=== PATIENT | male | born 1950 | race African-American/Black ===

== ENCOUNTER → 2018-11-27 | Day surgery (SDC) | payer MEDICARE ==
[2018-11-24 12:13] LABS: BASOPHILS % 0.3 % (0.0-1.0); EOSINOPHILS # (AUTO) 0.1 (0.0-0.4); EOSINOPHILS % 2.1 % (0.0-6.0); HEMATOCRIT 43.3 % (38.2-49.6); HEMOGLOBIN 14.5 g/dL (14.0-18.0); LYMPHOCYTES # (AUTO) 1.9 (1.0-3.2); LYMPHOCYTES % 50.8 % (18.0-39.1); MEAN CORPUSCULAR HEMOGLOBIN 31.2 pg (28-32); MEAN CORPUSCULAR HGB CONC 33.5 g/dL (31-35); MEAN CORPUSCULAR VOLUME 93.1 fL (81-99); MONOCYTES # (AUTO) 0.4 (0.2-0.8); MONOCYTES % 10.1 % (4.4-11.3); NEUTROPHILS # (AUTO) 1.4 (2.1-6.9); NEUTROPHILS % 36.4 % (38.7-80.0); PLATELET COUNT 180 x10e3/uL (140-360); RED BLOOD COUNT 4.65 x10e6/uL (4.3-5.7); RED CELL DISTRIBUTION WIDTH 13.1 % (11.7-14.4)
[2018-11-24 12:31] LABS: INR 1.01; PROTHROMBIN TIME 13.8 seconds (11.9-14.5)
[2018-11-24 12:33] LABS: ALANINE AMINOTRANSFERASE 22 IU/L (0-55); ALBUMIN 4.3 g/dL (3.5-5.0); ALBUMIN/GLOBULIN RATIO 1.3 (0.8-2.0); ALKALINE PHOSPHATASE 42 IU/L (40-150); BLOOD UREA NITROGEN 18 mg/dL (7-26); BUN/CREATININE RATIO 17 (6-25); CALCIUM 10.1 mg/dL (8.4-10.2); CARBON DIOXIDE 30 mmol/L (22-29); CHLORIDE 103 mmol/L (98-107); CREATININE, SERUM 1.09 mg/dL (0.72-1.25); EST GLOMERULAR FILTRATION RATE > 60 ML/MIN (60-); GLUCOSE 91 mg/dL (74-118); SODIUM 141 mmol/L (136-145)
--- NOTE | 2018-11-25 14:12 | NUR ---
Called and notified patient to arrive at hospital at 1000 on 11/27/18. Patient verbalized understanding and had no questions at this time.
[2018-11-27] VITALS (8 sets, daily range): BP systolic 112–161; BP diastolic 67–89
[~2018-11-27] VITALS: Ht 182.9 cm; Wt 108.0 kg
[~2018-11-27] MED LIST: ACETAMINOPHEN325 M1 PO; ADVIL200 M1 PO; AMLODIPINE BESYL5 MG PO; ASPIRIN81 MG; CENTRUM SILVER1 EAC3 PO; FENTANYL CITRATE/PF 100MCG/2 ML INJ ONE; FLAX OIL1000 MG; FLUOXETINE HCL20 MG PO; FUROSEMIDE40 MG PO; GABAPENTIN300 MG PO; HEPARIN SOD/SOD CHLORIDE 2,000 ML ONE; IOPAMIDOL 370 MG/ML 200 ML INFUS..BTL INJ ONE; LIDOCAINE HCL 2% LOCAL 20 ML VIAL ONE; LOSARTAN-HCTZ1 EAC2; METOPROLOL SUCC25 MG; MIDAZOLAM HCL 2 MG/2 ML VIAL ONE; NAPROXEN250 MG PO; OSTEO BI-FLEX1 EAC2; POTASSIUM CHLO20 ME1; SIMVASTATIN20 MG PO; SODIUM CHLORIDE 0.9% 1000ML 1,000 ML ONE; TRAZODONE HCL50 MG PO; VERAPAMIL HCL 2.5 MG/ML 2 ML VIAL ONE
--- NOTE | 2018-11-27 08:38 | NUR ---
0838 Pt in #10, prepped for procedure. Alert oriented and appropriate, PERRLA, respirations even and unlabored to room air. Pulses x4 extremities equal . Pedal pulses PT/DP 2+/2+ Doppler bilateral and marked. Cap fill brisk < 3 sec. bilateral feet semi cool and pale. [facility] radial approach if possible per DR Norris for work clearance Upstream. Skin warm and dry integrity appears intact in general. IV started #20g x3 attempts rt ac successful by ROBERTH Ward and presents healthy w/o s/s of infiltration or complaint. Abdomen soft and supple. pt offered toileting, denies need to urinate or defecate. Personal affects with patient. Family at bedside. Pt and family verbalizes understanding of POC. No active Cp or SOB at this time.Ready for procedure Report handoff to Sylvia coronado/rn
--- OUTSIDE RECORDS SUMMARY | 2018-11-27 09:14 | XMS REPORT | Clinical Summary ---
Author Author [facility] Address Unknown Phone Unavailable Care Team Providers Care Pest Control Applicator Name Role Phone Asked, No Pcp PCP Unavailable Allergies Not on File Medications Not on file Active Problems Not on file Immunizations Name Administration Dates Next Due FLUCELVAX QUAD PF (0.5mL 03/05/2017 syringe) IPV 03/05/2017 Typhoid Inactivated 03/05/2017 Social History Date Tobacco Use Types Packs/Day Years Used Never Assessed Sex Assigned at Date Recorded Not on file Industry Job Start Date Occupation Not on file Not on file Not on file Travel End Travel History Travel Start No recent travel history available. Last Filed Vital Signs Not on file Plan of Treatment Health Maintenance Due Date Last Done Comments COLONOSCOPY SCREENING 1998 SHINGLES VACCINES (#1) 1998 65+ PNEUMOCOCCAL VACCINE 2013 (1 of 2 - PCV13) INFLUENZA VACCINE 10/30/2018 03/05/2017 Results Not on fileafter 11/26/2017 Advance Directives For more information, please contact: [phone] Patient Bingo Cashier Explanation Type Date Recorded Advance Directives, Living Will and Medical Power of Director Of Digital Technology
--- OUTSIDE RECORDS SUMMARY | 2018-11-27 09:14 | XMS REPORT ---
[facility] Address Unknown Phone Unavailable Care Team Providers Care Manager Of Software Development Name Role Phone Unavailable Unavailable Problems This patient has no known problems. Allergies, Adverse Reactions, Alerts This patient has no known allergies or adverse reactions. Medications This patient has no known medications. Encounters Start Date/Time End Date/Time Encounter Type Admission Type Attending [facility] Care Department Encounter ID 2017-10-15 02:35:25 2017-10-15 02:35:25 Emergency [facility] [id number] 2017-10-15 02:35:25 2017-10-15 02:35:25 Emergency [facility] [id number] 2017-10-15 02:35:25 2017-10-15 02:35:25 Emergency [facility] [id number] 2017-10-14 21:13:51 2017-10-14 21:13:51 Emergency [facility] [id number] 2017-10-14 17:09:02 2017-10-14 17:09:02 Emergency [facility] [id number] 2017-05-06 14:41:42 2017-05-06 14:41:42 Outpatient [facility] [id number] 2017-05-06 13:28:06 2017-05-06 13:28:06 Outpatient [facility] [id number] 2017-05-01 00:49:16 2017-05-01 00:49:16 Emergency [facility] [id number] 2017-04-30 15:53:54 2017-04-30 15:53:54 Emergency [facility] [id number] 2017-04-30 15:36:55 2017-04-30 15:36:55 Emergency [facility] [id number] 2017-04-30 15:13:26 2017-04-30 15:13:26 Emergency [facility] [id number]
--- NOTE | 2018-11-27 11:10 | NUR ---
1110a Bedside report received from Sylvia LEPE.Identiferx2. [facility] no fix Dr Norris Rt TR band approach NO gross issues pain pallor pressure or dysrhythmia.Alert oriented and appropriate, PERRLA, respirations even and unlabored to room air. Pulses x4 extremities equal and strong. Pedal pulses PT/DP x4 and marked. Cap fill brisk < 3 sec. Skin warm and dry integrity appears D/I. IV 20g to rt ac at 100cchr via controller.presents healthy w/o s/s of infiltration or complaint. Abdomen soft and supple. pt offered toileting, denies need to urinate or defecate. No personal affects with patient. Family significant other Edena at bedside .Pt and family verbalizes understanding of POC. Ok to reduce air in band at 1205.Normal neuro vascular function. Currently w/o complaints. ds/rn
--- NOTE | 2018-11-27 11:24 | Operative Report ---
DATE OF PROCEDURE: SURGEON: Darryl Norris DO PROCEDURES PERFORMED: 1. Conscious sedation, 26 minutes. 2. Selective coronary angiography x2. 3. Left heart catheterization. PREPROCEDURE DIAGNOSIS: Abnormal stress test. POSTPROCEDURE DIAGNOSIS: Luminal irregularities. ESTIMATED BLOOD LOSS: Less than 10 mL. SPECIMENS REMOVED: None. PROCEDURE IN DETAIL: After informed consent was obtained, the patient was brought to the cardiac catheterization laboratory in a fasting and nonsedated state. Bilateral groins were prepped and draped in usual sterile fashion. A 2% lidocaine was infiltrated over the right anterior wrist for local anesthesia. Using a micropuncture needle, the right radial artery was accessed via modified Seldinger technique and a 5/6 slender sheath was placed. Next, diagnostic selective coronary angiography x2 and left heart catheterization was performed using a TIG catheter. The patient tolerated the procedure well. No immediate complications and transported back to his room in stable condition. Hemostasis was achieved via TR band. PROCEDURAL FINDINGS: 1. Left main is patent without significant coronary artery disease. 2. Left anterior descending coronary artery is patent with mild luminal irregularities. 3. Left circumflex coronary provides 2 obtuse marginal vessels with mild luminal irregularities. 4. Right coronary artery is a dominant vessel and provides posterior descending coronary artery with mild luminal irregularities. 5. Left ventricular end-diastolic pressure is 10 mmHg with no aortic valve gradient present upon pullback. IMPRESSION: Minimal luminal irregularities. RECOMMENDATIONS: Continue medical management. Darryl Norris DO BM/MODL /[id number]
--- NOTE | 2018-11-27 13:32 | NUR ---
Discharge note: TR band removed without issue. No bleeding or hematoma noted. Discharge instructions gone over with patient and Jazmine (significant other) and both verbalized 100% understanding and had no further questions. Copy of all signed paperwork and discharge instructions given to Jazmine. Patient dressed with assistance from dominguez Smith. IV removed without issue or hematoma. Patient to follow up with Dr Norris in 2 weeks. Taken out via wheelchair to personal vehicle.
== END | disposition home or self-care (01) ==
LOC: CATH LAB 09:12
PROVIDERS: ATTEND Internal Medicine Cardiovascular Disease
DX: I25.10 Atherosclerotic heart disease of native coronary artery without angina pectoris (principal); Z01.812 Encounter for preprocedural laboratory examination; Z79.82 Long term (current) use of aspirin
CPT/HCPCS: 36415; 80053; 85025; 85610; 93458; J2001; J2250; J3010; J7030; Q9967